=== PATIENT | male | born 1945 | race African-American/Black ===

== ENCOUNTER 2019-06-13 13:08 | Emergency (ER) | payer OTHER ==
[2019-06-13 13:29] LABS: Absolute Lymphocytes (CBC) 1.9 K/uL (0.7-4.9); Basophils % 0.5 % (0-1.3); Hematocrit 33.3 % (39.6-49.0); Lymphocytes % 21.7 % (15.3-44.8); MPV 6.5 fL (7.6-11.3)
[2019-06-13] MEDS ORDERED: NA CHLORIDE 0.9% 1,000 ML ONE (13:48)
--- NOTE | 2019-06-13 14:13 | RAD REPORT ---
EXAM DESCRIPTION: CT - Head C Spine Mpr Wo Con - 06/13/2019 1:52 pm CLINICAL HISTORY: Head and neck injury status post fall. Head and neck pain COMPARISON: None. TECHNIQUE: Computed axial tomography of the head and cervical spine was obtained. Sagittal and coronal reconstruction was performed. All CT scans are performed using dose optimization technique as appropriate and may include automated exposure control or mA/KV adjustment according to patient size. FINDINGS: Mild to moderate low-density areas within periventricular, deep and subcortical white sophia er likely ischemic changes secondary to small vessel disease. Cerebral atrophy is noted. An intracranial bleed is not seen. The ventricles are normal in caliber. An extra-axial fluid collect ion is not noted.Fluid within the visualized sinuses and mastoids is not seen A cervical fracture is not visualized. No dislocation is noted. IMPRESSION: No acute intracranial abnormality is seen. A cervical fracture is not visualized. If the patient continues to have symptoms to suggest intracra nial /spinal cord pathology then MRI would be recommended
--- NOTE | 2019-06-13 14:20 | RAD REPORT ---
EXAM DESCRIPTION: RAD - Pelvis - 06/13/2019 2:10 pm CLINICAL HISTORY: Pelvic pain status post injury FINDINGS: No fracture or dislocation is seen. Osteoporosis. Marked osteoarthritis right hip. If the patient continues to have symptoms to suggest an occult fracture then MRI would be recommended
--- NOTE | 2019-06-13 14:21 | RAD REPORT ---
EXAM DESCRIPTION: RAD - Hip Left 2 View - 06/13/2019 2:10 pm CLINICAL HISTORY: Left hip pain status post injury FINDINGS: No fracture or dislocation is seen. Osteoporosis If the patient continues to have symptoms to suggest an occult fracture then MRI would be recommended .
--- NOTE | 2019-06-13 14:23 | RAD REPORT ---
EXAM DESCRIPTION: Deny Single View06/13/2019 2:12 pm CLINICAL HISTORY: Chest pain COMPARISON: none FINDINGS: A 6 millimeter nodular density left base The right lung appears clear. Heart is normal size IMPRESSION: A 6 millimeter nodular opacity left base may represent a nipple shadow or pulmonary nodu le. It is recommended that the patient have frontal and oblique views of the chest in 3 months with a left nipple marker for further evaluation
[2019-06-13] MEDS ORDERED: IBUPROFEN 200 MG TAB PO ONE (14:32)
[2019-06-13] MEDS ORDERED: IBUPROFEN 400 MG TAB ONE (14:32)
[2019-06-13 14:34] LABS: Protime INR 1.11
[2019-06-13 14:49] LABS: ALT/SGPT 48 U/L (12-78); AST/SGOT 33 U/L (15-37); Albumin 3.8 g/dL (3.4-5.0); Alkaline Phosphatase 79 U/L (45-117); BUN Blood Urea Nitrogen 10 mg/dL (7-18); Bicarbonate 24 mmol/L (21-32); Bilirubin Direct 0.2 mg/dL (0-0.2); Bilirubin Total 0.5 mg/dL (0.2-1.0); CKMB Creatine Kinase MB < 1.0 ng/mL (0.3-3.6); Creatine Phosphokinase 44 U/L (39-308); Glucose Level 126 mg/dL (74-106); Lipase 89 U/L (73-393); Magnesium 2.2 mg/dL (1.8-2.4); NT PRO-BNP 228 pg/mL (<125); Potassium 3.5 mmol/L (3.5-5.1); Protein, Total 8.9 g/dL (6.4-8.2); Sodium Level 134 mmol/L (136-145); Troponin (Emerg Dept Use Only) < 0.02 ng/mL (0.0-0.045)
--- NOTE | 2019-06-13 15:29 | RAD REPORT ---
EXAM DESCRIPTION: USCarotid Artery Bilateral06/13/2019 3:21 pm CLINICAL HISTORY: Syncope with head and COMPARISON: None FINDINGS: The velocity of the right internal carotid artery equals 106 cm/sec. The right ICA/CCA rat io 1.3 The velocity of the left internal carotid artery equals 91 cm/sec. The left ICA/CCA ratio 1.2 Mild plaque is present within the carotid arteries. The vertebral arteries demonstrate antegrade flow IMPRESSION: Mild plaque within the carotid arteries without evidence of a hemodynamically significan t stenosis NASCET criteria used. Mild 0-49% stenosis Moderate 50-69% stenosis Severe 70-99% stenosis
--- NOTE | 2019-06-13 15:30 | ER ---
Nurse's Notes [facility] Name: Cabrera Tucker Age: 73 yrs Sex: Male : 1945 Arrival Date: 06/13/2019 Time: 13:10 Bed 8 Private MD: Diagnosis: Superficial injury of head;Syncope and collapse;Solitary pulmonary nodule Presentation: 06/13 13:10 Presenting complaint: EMS states: pt was at a convenient store, became dizzy and fell sg backward to the ground, striking the back of his head on the convenient store shelf, small laceration sustained to the back of head, pt denies LOC, reports just dizziness, denied numbness tingling, weakness, VAN negative per EMS. Transition of care: patient was not received from another setting of care. Onset of symptoms was June 13, 2019. Risk Assessment: Do you want to hurt yourself or someone else? Patient reports no desire to harm self or others. Initial Sepsis Screen: Does the patient meet any 2 criteria? HR > 90 bpm. Does the patient have a suspected source of infection? No. Patient's initial sepsis screen is negative. Care prior to arrival: None. 13:10 Method Of Arrival: EMS: [facility] sg 13:10 Acuity: ILIR 2 sg 13:12 Note VS per EMS- HR 128, BP 80'S systolic. sg Triage Assessment: 13:14 General: Appears in no apparent distress. slender, well groomed, well developed, well sg nourished, Behavior is calm, cooperative, appropriate for age. Pain: Complains of pain in occipital area. Neuro: Level of Consciousness is awake, alert, obeys commands, Oriented to person, place, time, situation, Heating Element Repairer are equal bilaterally Moves all extremities. Full function Gait is steady, Speech is normal, Facial symmetry appears normal. Respiratory: Airway is patent Respiratory effort is even, unlabored, Respiratory pattern is regular, symmetrical, Denies cough, shortness of breath labored breathing, pain with respiration, pain with cough, pain with movement, air hunger. GI: No signs and/or symptoms were reported involving the gastrointestinal system. : No signs and/or symptoms were reported regarding the genitourinary system. Derm: Skin is healthy with good turgor, is thin, Skin is dry, Skin is black, Skin temperature is warm. Musculoskeletal: Circulation, motion, and sensation intact. Range of motion: intact in all extremities. Injury Description: Laceration sustained to occipital area is clean, superficial, 0.5 to 2.5 cm long, not bleeding, a small amount of bleeding noted at this time. Historical: - Allergies: 13:14 No Known Allergies; sg - Home Meds: 13:14 None [Active]; sg - PMHx: 14:35 None; em - PSHx: 13:14 None; sg - Immunization history:: Adult Immunizations not up to date, Last tetanus immunization: unknown. - Coronavirus screen:: The patient has NOT traveled to [place] in the past 14 days. The patient has NOT had contact with known/suspected case of Coronavirus?. - Social history:: Smoking status: Patient denies any tobacco usage or history of. - Family history:: not pertinent. - Ebola Screening: : Patient negative for fever greater than or equal to 101.5 degrees Fahrenheit, and additional compatible Ebola Virus Disease symptoms Patient denies exposure to infectious person Patient denies travel to an Ebola-affected area in the 21 days before illness onset No symptoms or risks identified at this time. Screenin:15 Abuse screen: Denies threats or abuse. Nutritional screening: No deficits noted. em Tuberculosis screening: No symptoms or risk factors identified. Fall Risk None identified. Assessment: 13:10 General: Appears in no apparent distress. comfortable, Behavior is calm, cooperative, em appropriate for age, Denies feeling ill. Pain: Complains of pain in left hip and occipital area Pain currently is 4 out of 10 on a pain scale. Pain began 1 hour ago. Neuro: Level of Consciousness is awake, alert, obeys commands, Oriented to person, place, time, situation, Appropriate for age Reports became dizzy and passed out, did have LOC and did hit head, denies being on blood thinners . Cardiovascular: Capillary refill < 3 seconds Patient's skin is warm and dry. Rhythm is sinus rhythm. Respiratory: Airway is patent Respiratory effort is even, unlabored, Respiratory pattern is regular, symmetrical. GI: Patient currently denies nausea, vomiting. Derm: Skin is intact, is healthy with good turgor, Skin is pink, warm \T\ dry. Musculoskeletal: Capillary refill < 3 seconds, Range of motion: intact in all extremities. 14:25 Reassessment: Patient appears in no apparent distress at this time. request something em for pain, rates pain 4/10, provider notified, received new medication orders. 15:10 Reassessment: ultrasound at bedside now. mg2 15:50 Reassessment: Patient appears in no apparent distress at this time. Patient and/or em family updated on plan of care and expected duration. Pain level reassessed. Patient is alert, oriented x 3, equal unlabored respirations, skin warm/dry/pink. tolerated orthostatics well, provider notified, received verbal order to give NS 0.9% 500 mL x 1 Patient denies pain at this time. Patient states feeling better. 16:00 Reassessment: pending completion of NS, prior to discharge. em 16:47 Reassessment: Patient appears in no apparent distress at this time. Patient and/or em family updated on plan of care and expected duration. Pain level reassessed. Patient is alert, oriented x 3, equal unlabored respirations, skin warm/dry/pink. Patient denies pain at this time. Patient states feeling better. Vital Signs: 13:10 BP 103 / 76; Pulse 109; Resp 17; Temp 98.4; Pulse Ox 100% on R/A; Pain 2/10; sg 14:30 BP 128 / 71; Pulse 96; Resp 16; Pulse Ox 99% on R/A; Pain 4/10; em 15:42 BP 141 / 74 Supine; Pulse 89; em 15:42 BP 133 / 81 Sitting; Pulse 87; em 15:42 BP 127 / 78 Standing; Pulse 95; em 16:48 BP 125 / 68; Pulse 94; Resp 18; Pulse Ox 99% on R/A; Pain 0/10; em 15:42 pt did not become dizzy or lightheaded, tolerated well em ED Course: 13:10 Patient arrived in ED. sg 13:12 Triage completed. sg 13:13 Arm band placed on. sg 13:15 Anton Wallis, RN is Primary Nurse. em 13:15 Patient has correct armband on for positive identification. Placed in gown. Bed in low em position. Call light in reach. Side rails up X2. radiology tech on. Pulse ox on. NIBP on. 13:15 Maintain EMS IV. Dressing intact. Good blood return noted. Site clean \T\ dry. Gauge \T\ em site: 20 LAC. 13:16 Joe Lazcano MD is Attending Physician. john 13:16 No provider procedures requiring assistance completed. mg2 13:52 CT completed. Patient moved back from CT. bq 15:19 Ultrasound completed. Patient tolerated well. sg3 16:47 IV discontinued, intact, bleeding controlled, No redness/swelling at site. Pressure em dressing applied. Administered Medications: 14:20 Drug: NS 0.9% 500 ml Route: IV; Rate: bolus; Site: left antecubital; em 16:49 Follow up: IV Status: Completed infusion; IV Intake: 500ml em 14:38 Drug: Motrin 600 mg Route: PO; em 15:42 Follow up: Response: No adverse reaction; Marked relief of symptoms; Pain is decreased em 15:58 Drug: NS 0.9% 500 ml Route: IV; Rate: bolus; Site: left antecubital; em 16:46 Follow up: IV Status: Completed infusion; IV Intake: 500ml em Point of Care Testing: Blood Glucose: 13:10 Blood Glucose: 118 mg/dL; sg Ranges: Intake: 16:46 IV: 500ml; Total: 500ml. em 16:49 IV: 500ml; Total: 1000ml. em Outcome: 15:28 Discharge ordered by . john 16:47 Discharged to home ambulatory, with family. em 16:47 Condition: good 16:47 Discharge instructions given to patient, family, Instructed on discharge instructions, follow up and referral plans. Demonstrated understanding of instructions, follow-up care. 16:51 Patient left the ED. em Signatures: Jordi Magallon RN RN Joe Lazcano MD MD cha Quilty, Betty Anton Wallis RN RN Amanda Rivas [facility] Manuel Haney RN RN mg2
--- NOTE | 2019-06-13 15:31 | EDPHYS ---
Physician Documentation [facility] Name: Cabrera Tucker Age: 73 yrs Sex: Male : 1945 Arrival Date: 06/13/2019 Time: 13:10 Bed 8 Private MD: ED Physician Joe Lazcano HPI: 06/13 13:27 This 73 yrs old Black Male presents to ER via EMS with complaints of Near Syncope. john 13:27 The patient has experienced near-syncope, almost passed out, felt dizzy, felt generally john weak. Onset: The symptoms/episode began/occurred just prior to arrival. Duration: This was a single episode, that lasted an unknown period of time. Context: the episode(s) was witnessed, by a bystander. Associated injury: Head/face:. Associated signs and symptoms: The patient has no apparent associated signs or symptoms. The patient has not experienced similar symptoms in the past. Historical: - Allergies: 13:14 No Known Allergies; sg - Home Meds: 13:14 None [Active]; sg - PMHx: 14:35 None; em - PSHx: 13:14 None; sg - Immunization history:: Adult Immunizations not up to date, Last tetanus immunization: unknown. - Coronavirus screen:: The patient has NOT traveled to [place] in the past 14 days. The patient has NOT had contact with known/suspected case of Coronavirus?. - Social history:: Smoking status: Patient denies any tobacco usage or history of. - Family history:: not pertinent. - Ebola Screening: : Patient negative for fever greater than or equal to 101.5 degrees Fahrenheit, and additional compatible Ebola Virus Disease symptoms Patient denies exposure to infectious person Patient denies travel to an Ebola-affected area in the 21 days before illness onset No symptoms or risks identified at this time. ROS: 13:27 Constitutional: Negative for fever, chills, and weight loss, Eyes: Negative for injury, john pain, redness, and discharge, ENT: Negative for injury, pain, and discharge, Neck: Negative for injury, pain, and swelling, Cardiovascular: Negative for chest pain, palpitations, and edema, Respiratory: Negative for shortness of breath, cough, wheezing, and pleuritic chest pain, Abdomen/GI: Negative for abdominal pain, nausea, vomiting, diarrhea, and constipation, Back: Negative for injury and pain, : Negative for injury, bleeding, discharge, and swelling, MS/Extremity: Negative for injury and deformity, Skin: Negative for injury, rash, and discoloration, Psych: Negative for depression, anxiety, suicide ideation, homicidal ideation, and hallucinations, Allergy/Immunology: Negative for hives, rash, and allergies, Endocrine: Negative for neck swelling, polydipsia, polyuria, polyphagia, and marked weight changes, Hematologic/Lymphatic: Negative for swollen nodes, abnormal bleeding, and unusual bruising. 13:27 Neuro: Positive for syncope, near syncope. Exam: 13:27 Constitutional: This is a well developed, well nourished patient who is awake, alert, john and in no acute distress. Head/Face: Normocephalic, atraumatic. Eyes: Pupils equal round and reactive to light, extra-ocular motions intact. Lids and lashes normal. Conjunctiva and sclera are non-icteric and not injected. Cornea within normal limits. Periorbital areas with no swelling, redness, or edema. ENT: Nares patent. No nasal discharge, no septal abnormalities noted. Tympanic membranes are normal and external auditory canals are clear. Oropharynx with no redness, swelling, or masses, exudates, or evidence of obstruction, uvula midline. Mucous membranes moist. Neck: Trachea midline, no thyromegaly or masses palpated, and no cervical lymphadenopathy. Supple, full range of motion without nuchal rigidity, or vertebral point tenderness. No Meningismus. Chest/axilla: Normal chest wall appearance and motion. Nontender with no deformity. No lesions are appreciated. Cardiovascular: Regular rate and rhythm with a normal S1 and S2. No gallops, murmurs, or rubs. Normal PMI, no JVD. No pulse deficits. Respiratory: Lungs have equal breath sounds bilaterally, clear to auscultation and percussion. No rales, rhonchi or wheezes noted. No increased work of breathing, no retractions or nasal flaring. Abdomen/GI: Soft, non-tender, with normal bowel sounds. No distension or tympany. No guarding or rebound. No evidence of tenderness throughout. Back: No spinal tenderness. No costovertebral tenderness. Full range of motion. Male : Normal genitalia with no discharge or lesions. Skin: Warm, dry with normal turgor. Normal color with no rashes, no lesions, and no evidence of cellulitis. MS/ Extremity: Pulses equal, no cyanosis. Neurovascular intact. Full, normal range of motion. Neuro: Awake and alert, GCS 15, oriented to person, place, time, and situation. Cranial nerves II-XII grossly intact. Motor strength 5/5 in all extremities. Sensory grossly intact. Cerebellar exam normal. Normal gait. Psych: Awake, alert, with orientation to person, place and time. Behavior, mood, and affect are within normal limits. 13:27 Neck: C-spine: appears grossly normal, no acute changes, Thyroid: appears normal, Trachea: is midline with no obvious abnormalities, ROM/movement: is normal, no acute changes, Lymph nodes: no appreciated lymphadenopathy. Vital Signs: 13:10 BP 103 / 76; Pulse 109; Resp 17; Temp 98.4; Pulse Ox 100% on R/A; Pain 2/10; sg 14:30 BP 128 / 71; Pulse 96; Resp 16; Pulse Ox 99% on R/A; Pain 4/10; em 15:42 BP 141 / 74 Supine; Pulse 89; em 15:42 BP 133 / 81 Sitting; Pulse 87; em 15:42 BP 127 / 78 Standing; Pulse 95; em 16:48 BP 125 / 68; Pulse 94; Resp 18; Pulse Ox 99% on R/A; Pain 0/10; em 15:42 pt did not become dizzy or lightheaded, tolerated well em MDM: 13:16 Patient medically screened. [facility] 13:29 Data reviewed: vital signs, nurses notes, lab test result(s), EKG, radiologic studies, [facility] CT scan, doppler, plain films. 06/13 13:18 Order name: Basic Metabolic Panel em 06/13 13:18 Order name: CBC with Diff 06/13 13:18 Order name: Ckmb em 06/13 13:18 Order name: CPK em 06/13 13:18 Order name: Hepatic Function em 06/13 13:18 Order name: Lipase em 06/13 13:18 Order name: Magnesium em 06/13 13:18 Order name: Protime (+inr) em 06/13 13:18 Order name: Ptt, Activated em 06/13 13:18 Order name: Troponin (emerg Dept Use Only) em 06/13 13:25 Order name: Glucose, Ancillary Testing; Complete Time: 14:28 EDND 06/13 13:27 Order name: NT PRO-BNP [facility] 06/13 13:32 Order name: CBC with Automated Diff; Complete Time: 14:28 EDND 06/13 14:38 Order name: Protime (+INR); Complete Time: 15:06 EDND 06/13 13:18 Order name: CT Head C Spine 06/13 13:27 Order name: XRAY Chest (1 view) [facility] 06/13 13:27 Order name: US Carotid Artery Bilateral [facility] 06/13 13:35 Order name: Hip Left 2 View XRAY [facility] 06/13 13:35 Order name: Pelvis XRAY [facility] 06/13 14:38 Order name: PTT, Activated Partial Thromb; Complete Time: 15:06 EDND 06/13 14:51 Order name: Basic Metabolic Panel; Complete Time: 15:06 [facility] 06/13 14:51 Order name: Liver (Hepatic) Function; Complete Time: 15:06 EDND 06/13 14:51 Order name: Creatine Phosphokinase; Complete Time: 15:06 [facility] 06/13 14:51 Order name: CKMB Creatine Kinase MB; Complete Time: 15:06 EDND 06/13 14:51 Order name: Troponin (Emerg Dept Use Only); Complete Time: 15:06 EDND 06/13 14:51 Order name: NT PRO-BNP; Complete Time: 15:06 [facility] 06/13 14:51 Order name: Magnesium; Complete Time: 15:06 [facility] 06/13 14:51 Order name: Lipase; Complete Time: 15:06 [facility] 06/13 16:20 Order name: Urine Dipstick--Ancillary (enter results) 06/13 16:39 Order name: Urine Dipstick-Ancillary [facility] 06/13 13:18 Order name: EKG; Complete Time: 13:19 06/13 13:18 Order name: Cardiac monitoring; Complete Time: 13:32 06/13 13:18 Order name: EKG - Nurse/Tech; Complete Time: 13:25 06/13 13:18 Order name: IV Saline Lock; Complete Time: 13:25 06/13 13:18 Order name: Labs collected and sent; Complete Time: 13:25 em 06/13 13:18 Order name: NPO; Complete Time: 13:25 em 06/13 13:18 Order name: O2 Per Protocol; Complete Time: 13:25 em 06/13 13:18 Order name: O2 Sat Monitoring; Complete Time: 13:26 em 06/13 13:18 Order name: Urine Dipstick-Ancillary (obtain specimen); Complete Time: 16:10 em 06/13 13:33 Order name: Labs - recollect needed: recollect green and blue top tubes; Complete Time: eb 14:23 06/13 14:34 Order name: CT; Complete Time: 15:06 EDMS 06/13 14:35 Order name: RAD; Complete Time: 15:06 EDMS 06/13 14:35 Order name: RAD; Complete Time: 15:06 EDMS 06/13 14:35 Order name: RAD; Complete Time: 15:06 EDMS 06/13 15:30 Order name: Orthostatics; Complete Time: 15:55 [facility] 06/13 15:37 Order name: EDMS Administered Medications: 14:20 Drug: NS 0.9% 500 ml Route: IV; Rate: bolus; Site: left antecubital; em 16:49 Follow up: IV Status: Completed infusion; IV Intake: 500ml em 14:38 Drug: Motrin 600 mg Route: PO; em 15:42 Follow up: Response: No adverse reaction; Marked relief of symptoms; Pain is decreased em 15:58 Drug: NS 0.9% 500 ml Route: IV; Rate: bolus; Site: left antecubital; em 16:46 Follow up: IV Status: Completed infusion; IV Intake: 500ml em Point of Care Testing: Blood Glucose: 13:10 Blood Glucose: 118 mg/dL; sg Ranges: Critical Glucose Levels:Adult <50 mg/dl or >400 mg/dl <40 mg/dl or >180 mg/dl Disposition: 06/13/19 15:28 Discharged to Home. Impression: Superficial injury of head, Syncope and collapse, Solitary pulmonary nodule. - Condition is Stable. - Discharge Instructions: Head Injury, Adult, Near-Syncope, Weakness, Near-Syncope, [id number], Weakness, [id number], Head Injury, Adult, [id number], Aspirin and Your Heart, Pulmonary Nodule, Pulmonary Nodule, [id number]. - Medication Reconciliation Form, Thank You Letter, Antibiotic Education, Prescription Opioid Use form. - Follow up: Private Physician; When: 2 - 3 days; Reason: Recheck today's complaints, Continuance of care, Re-evaluation by your physician. - Problem is new. - Symptoms have improved. Signatures: Dispatcher [employer] Jordi Samuel, RN Joe Gorman MD MD cha Munoz, Edgar, RN RN Amisha Funez Corrections: (The following items were deleted from the chart) 16:51 15:28 06/13/2019 15:28 Discharged to Home. Impression: Superficial injury of head; em Syncope and collapse; Solitary pulmonary nodule. Condition is Stable. Forms are Medication Reconciliation Form, Thank You Letter, Antibiotic Education, Prescription Opioid Use. Follow up: Private Physician; When: 2 - 3 days; Reason: Recheck today's complaints, Continuance of care, Re-evaluation by your physician. Problem is new. Symptoms have improved. john
[2019-06-13 16:39] LABS: Urine Blood NEGATIVE (NEG); Urine Glucose NEGATIVE (NEG); Urine Protein NEGATIVE (NEG); Urine pH 5.5 (5.0-7.0)
[2019-06-13 17:33] VITALS: TEMP 98.4
[2019-06-13 17:34] VITALS: O2SAT 99
[2019-06-13 17:37] VITALS: BP 125/68
--- NOTE | 2019-06-14 08:11 | EKG ---
Test Date: 2019-06-13 Test Time: 13:14:24 Travel Professional: KOBE MEASUREMENT RESULTS: Intervals: Rate: 102 OH: 210 QRSD: 94 QT: 346 QTc: 450 Hugo: P: 68 OH: 210 QRS: -18 T: 73 INTERPRETIVE STATEMENTS: Sinus tachycardia with 1st degree AV block Otherwise normal ECG No previous ECG available for comparison Electronically Signed On 06-14-19 08:09:34 FIRE ALARM DISPATCHER by Telly Linda
== END 2019-06-13 16:51 | disposition home or self-care (01) ==
LOC: ER 13:08
DX: S00.90XA Unspecified superficial injury of unspecified part of head, initial encounter (principal); R91.1 Solitary pulmonary nodule
CPT/HCPCS: 96361; 93005; 85025; 80048; 36415; 83735; 82550; 85610; 82947; 80076; 85730; 81003; 84484; 82553; 83690; 83880; 70450; 72125; 71045; 72170; 73502; 93880; 96360; 99285; J7030

== ENCOUNTER 2021-11-07 15:25 | Inpatient (IN) | payer OTHER ==
[2021-11-07] MEDS ORDERED: FOLIC ACID 1 MG, MULTIVITAMINS INJ 10 ML, THIAMINE HCL 100 MG in NA CHLORIDE 0.9% 1,000 ML IV ONE (16:00)
[2021-11-07 16:31] LABS: Absolute Lymphocytes (CBC) 0.8 K/uL (0.7-4.9); Hematocrit 32.1 % (39.6-49.0); Lymphocytes % 15.1 % (15.3-44.8); MCV 113.1 fL (80-100); MPV 6.3 fL (7.6-11.3); RBC Red Blood Cell Count 2.84 M/uL (4.33-5.43)
[2021-11-07 16:42] LABS: Protime INR 1.32
--- NOTE | 2021-11-07 16:48 | RAD REPORT ---
EXAM DESCRIPTION: CT - [id number] - 11/07/2021 4:33 pm CLINICAL HISTORY: fall, weakness COMPARISON: <Comparisons> TECHNIQUE: Axial 5 mm thick images of the head were obtained. Axial 2 mm thick images of the cervic al spine were obtained with sagittal and coronal reconstruction images generated and reviewed. All CT scans are performed using dose optimization technique as appropriate and may include automated exposure control or mA/KV adjustment according to patient size. FINDINGS: No intracranial hemorrhage, mass, edema or acute intracranial finding. No acute cortical i nfarction. No cortical edema or sulcal effacement. Moderate severity atrophy and moderate chronic isc hemic changes are present. Ventricles are in proportion. No extra-axial fluid collections. Mastoid ai r cells and paranasal sinuses are clear. No globe or orbit abnormality seen. Intracranial findings ar e similar to the 2019 study. Cervical body height and alignment are normal. No disk space narrowing. No fracture or acute bony abn ormality. No acute or pathologic bone process. Central canal detail is inherently limited. No paraspinal mass or hematoma. IMPRESSION: Negative CT head examination for acute or significant finding. Negative CT cervical spine examination for acute or significant finding. Above detailed findings not significant different from May 2019.
[2021-11-07 16:49] LABS: Albumin 3.4 g/dL (3.4-5.0); Bilirubin Direct 0.2 mg/dL (0-0.2); Bilirubin Total 0.9 mg/dL (0.2-1.0)
[2021-11-07 16:52] LABS: Magnesium 2.2 mg/dL (1.8-2.4); Potassium 3.7 mmol/L (3.5-5.1)
[2021-11-07 16:54] LABS: Troponin High Sensitivity 153.4 pg/mL (<58.9)
--- NOTE | 2021-11-07 16:59 | RAD REPORT ---
EXAM DESCRIPTION: RAD - Chest Single View - 11/07/2021 4:28 pm CLINICAL HISTORY: fall, chest pain COMPARISON: PA chest 06/13/2019 TECHNIQUE: AP portable chest image was obtained 11/07/2021 4:28 pm . FINDINGS: Lungs are clear. Heart and vasculature are normal. No measurable pleural effusion and no p neumothorax. No acute bony abnormality seen. No acute aortic findings suspected. IMPRESSION: No acute cardiopulmonary process.
[2021-11-07 18:34] LABS: Urine Blood Trace-intact (Negative); Urine Glucose Negative (Negative); Urine Protein 1+ (Negative); Urine Specific Gravity >=1.030 (1.005-1.030); Urine pH 5.5 (5.0-7.0)
[2021-11-07 18:50] LABS: Urine Bacteria NONE SEEN /HPF (NONE SEEN)
[2021-11-07 18:54] LABS: Barbiturates NEGATIVE (NEGATIVE); Benzodiazepines NEGATIVE (NEGATIVE); Cocaine NEGATIVE (NEGATIVE); METHAMPHETAM NEGATIVE (NEGATIVE); Methadone NEGATIVE (NEGATIVE); Opiates NEGATIVE (NEGATIVE); Phencyclidine NEGATIVE (NEGATIVE); THC Cannibis NEGATIVE (NEGATIVE)
[2021-11-07] MEDS ORDERED: NA CHLORIDE 0.9% 50 ML ONE (18:58)
[2021-11-07] MEDS ORDERED: CEFTRIAXONE 1000 MG/VIAL ONE (18:58)
--- NOTE | 2021-11-07 19:05 | EDPHYS ---
Physician Documentation [facility] Name: Cabrera Tucker Age: 76 yrs Sex: Male : 1945 Arrival Date: 11/07/2021 Time: 15:31 Bed 13 Private MD: ED Physician Joe Lazcano HPI: 11/07 16:13 This 76 yrs old Black Male presents to ER via EMS with complaints of Fall, Weakness. cp 16:13 Details of fall: The patient fell from an upright position, while walking, tripped over cp "beer can" on floor in home. Onset: The symptoms/episode began/occurred early this morning, reports was unable to get up from floor until son found him this morning and placed him in bed. Patient reports being unable to get out of bed today due to weakness. 16:13 Associated injuries: The patient sustained no obvious injury. cp Historical: - Allergies: 15:38 No Known Allergies; tw2 - Home Meds: 15:38 None [Active]; tw2 - PMHx: 15:38 None; tw2 - PSHx: 15:38 None; tw2 - Immunization history:: Client reports receiving the 2nd dose of the Covid vaccine. - Social history:: Smoking status: Patient denies any tobacco usage or history of. Patient uses alcohol, on a daily basis. claims drinking about a 6 pack/day. ROS: 16:15 Constitutional: Negative for body aches, chills, fever, poor PO intake. cp 16:15 Eyes: Negative for injury, pain, redness, and discharge. cp 16:15 ENT: Negative for drainage from ear(s), ear pain, sore throat, difficulty swallowing, difficulty handling secretions. 16:15 Cardiovascular: Negative for chest pain, edema, palpitations. 16:15 Respiratory: Negative for cough, shortness of breath, wheezing. 16:15 Abdomen/GI: Negative for abdominal pain, nausea, vomiting, and diarrhea, anorexia, black/tarry stool, rectal bleeding. 16:15 Back: Negative for pain at rest, pain with movement. 16:15 MS/extremity: Negative for injury or acute deformity, decreased range of motion, paresthesias. 16:15 Neuro: Positive for weakness, Negative for altered mental status, dizziness, headache, numbness, seizure activity, syncope. 16:15 All other systems are negative. Exam: 15:55 ECG was reviewed by the Attending Physician. cp 16:20 Constitutional: The patient appears in no acute distress, alert, awake, cp non-diaphoretic, non-toxic, well developed, frail. 16:20 Head/Face: Normocephalic, atraumatic. cp 16:20 Eyes: Periorbital structures: appear normal, Pupils: equal, round, and reactive to light and accomodation, Extraocular movements: intact throughout, Conjunctiva: normal, no exudate, no injection, Sclera: no appreciated abnormality, Lids and lashes: appear normal, bilaterally. 16:20 ENT: External ear(s): are unremarkable, Nose: is normal, Mouth: Lips: moist, Oral mucosa: pink and intact, moist, Posterior pharynx: Airway: no evidence of obstruction, patent, erythema, is not appreciated, exudate, is not appreciated. 16:20 Neck: ROM/movement: is normal, is supple, without pain, no range of motions limitations, no nuchal rigidity. 16:20 Chest/axilla: Inspection: normal, Palpation: is normal, no crepitus, no tenderness. 16:20 Cardiovascular: Rate: normal, Rhythm: regular, Edema: is not appreciated, JVD: is not appreciated. 16:20 Respiratory: the patient does not display signs of respiratory distress, Respirations: normal, no use of accessory muscles, no retractions, labored breathing, is not present, Breath sounds: are clear throughout, no decreased breath sounds, no stridor, no wheezing. 16:20 Abdomen/GI: Inspection: abdomen appears normal, Bowel sounds: active, all quadrants, Palpation: abdomen is soft and non-tender, in all quadrants. 16:20 Back: pain, is absent, ROM is normal, vertebral tenderness, is not appreciated. 16:20 Skin: cellulitis, is not appreciated, no rash present. 16:20 Neuro: Orientation: to person, place \\T\\ time. Mentation: is normal, Motor: moves all fours, general weakness with no focal deficits, Sensation: is normal. 17:34 : Rectal exam: Rectal tone: normal, Stool: soft, dark colored, Guaiac testing: cp results were negative for occult blood. Vital Signs: 15:30 BP 106 / 73; Pulse 89; Resp 17; Temp 98.1(TE); Pulse Ox 99% on R/A; Weight 43.09 kg tw2 (R); Height 5 ft. 8 in. (172.72 cm); 16:49 BP 110 / 69; Pulse 85; Resp 9; Pulse Ox 100% on R/A; tw2 17:30 BP 119 / 71; Pulse 79; Resp 16; Pulse Ox 99% on R/A; tw2 18:25 BP 122 / 68; Pulse 78; Resp 21; Pulse Ox 100% on R/A; tw2 19:35 BP 125 / 68; Pulse 88; Resp 22; Pulse Ox 100% on R/A; sm5 21:54 BP 120 / 79; Pulse 85; Resp 21; Pulse Ox 98% on R/A; sm5 15:30 Body Mass Index 14.44 (43.09 kg, 172.72 cm) tw2 MDM: 15:32 Patient medically screened. [facility] 19:05 Data reviewed: vital signs, nurses notes, lab test result(s), EKG, radiologic studies, cp CT scan, plain films, and as a result, I will admit patient. 19:05 Test interpretation: by ED physician or midlevel provider: ECG, plain radiologic cp studies. Counseling: I had a detailed discussion with the patient and/or guardian regarding: the historical points, exam findings, and any diagnostic results supporting the discharge/admit diagnosis, lab results, radiology results, the need for further work-up and treatment in the hospital. 11/07 15:35 Order name: Basic Metabolic Panel; Complete Time: 17:16 11/07 17:16 Interpretation: Normal except: GLUC 111; GFR 86. 11/07 15:35 Order name: CBC with Diff; Complete Time: 17:16 cp 11/07 17:16 Interpretation: Normal except: RBC 2.84; HGB 11.1; HCT 32.1; MCV 113.1; MCH 39.2; RDW cp 11.7; MPV 6.3; JESSICA% 76.3; LYM% 15.1. 11/07 15:35 Order name: LFT's; Complete Time: 17:16 cp 11/07 15:35 Order name: Magnesium; Complete Time: 17:16 cp 11/07 15:35 Order name: NT PRO-BNP; Complete Time: 17:16 cp 11/07 17:16 Interpretation: NT PRO-BNP 7795; Reviewed. cp 11/07 15:35 Order name: PT-INR; Complete Time: 17:16 cp 11/07 15:35 Order name: Troponin HS; Complete Time: 17:16 cp 11/07 17:17 Interpretation: Abnormal: Troponin HS 153.4. cp 11/07 15:35 Order name: CK; Complete Time: 17:16 cp 11/07 17:17 Interpretation: Abnormal: CPK 444. cp 11/07 15:35 Order name: Urine Microscopic Only; Complete Time: 19:03 cp 11/07 15:35 Order name: ETOH Level; Complete Time: 17:16 cp 11/07 15:35 Order name: UDS; Complete Time: 19:03 cp 11/07 18:34 Order name: Urine Dipstick-Ancillary; Complete Time: 18:39 EDMS 11/07 18:39 Interpretation: Normal except: UKET 2+; UBLD Trace-intact; UPROT 1+; U NIT Positive. cp 11/07 18:41 Order name: Procalcitonin; Complete Time: 20:05 cp 11/07 18:41 Order name: Lactate; Complete Time: 21:06 cp 11/07 15:35 Order name: XRAY Chest (1 view); Complete Time: 17:16 cp 11/07 15:35 Order name: EKG; Complete Time: 15:36 cp 11/07 15:35 Order name: Cardiac monitoring; Complete Time: 15:41 cp 11/07 15:35 Order name: EKG - Nurse/Tech; Complete Time: 16:34 cp 11/07 15:35 Order name: IV Saline Lock; Complete Time: 16:20 cp 11/07 15:35 Order name: Labs collected and sent; Complete Time: 16:20 cp 11/07 15:35 Order name: O2 Per Protocol; Complete Time: 15:41 cp 11/07 15:35 Order name: O2 Sat Monitoring; Complete Time: 15:41 cp 11/07 15:35 Order name: Urine Dipstick-Ancillary (obtain specimen); Complete Time: 18:36 cp 11/07 15:38 Order name: CT Head C Spine; Complete Time: 17:16 cp 11/07 17:19 Order name: Cath; Complete Time: 18:02 cp 11/07 18:41 Order name: Blood Culture Adult (2) cp 11/07 19:21 Order name: COVID-19 SARS RT PCR (Document "Date of Onset" if Symptomatic); Complete mw2 Time: 20:36 EC:55 Rate is 80 beats/min. Rhythm is regular. VT interval is normal. QRS interval is normal. cp QT interval is normal. T waves are Inverted in lead aVR. Interpreted by me. Reviewed by me. Administered Medications: 16:34 Drug: Banana Bag - (NS 0.9% 1000 ml, foLIC Acid 1 mg, Thiamine 100 mg, Multivitamin 1 tw2 amp) {Note: medication available from pharmacy at this time..} Route: IV; Rate: calculated rate; Site: left forearm; 19:34 Drug: Rocephin - (cefTRIAXone) 1 grams Route: IVPB; Infused Over: 30 mins; Site: left sm5 forearm; 19:45 Follow up: IV Status: Completed infusion; IV Intake: 50ml sm5 Disposition Summary: 11/07/21 19:04 Hospitalization Ordered Hospitalization Status: Inpatient Admission cp Provider: Adriane Jones cp [facility] cp Condition: Fair cp Problem: new cp Symptoms: are unchanged cp Bed/Room Type: Standard cp Room Assignment: 231(11/07/21 20:46) eb1 Diagnosis - UTI/ Urinary tract infection, site not specified cp - Weakness cp Forms: - Medication Reconciliation Form cp - SBAR form cp Addendum: 11/11/2021 14:07 Co-signature as Attending Physician, Joe Lazcano MD I agree with the assessment and c cagle plan of care. Signatures: Dispatcher [employer] EDJoe Laguerre MD MD cha Page, Corey, PA PA cp Raiza Schroeder, RN RN tw2 Anna Phelps RN RN eb1 Amanda Parker RN RN sm5 Adriane Jones PA PA sb3 Corrections: (The following items were deleted from the chart) 11/07 20:46 19:04 cp eb1
--- NOTE | 2021-11-07 19:05 | ER ---
Nurse's Notes [facility] Name: Cabrera Tucker Age: 76 yrs Sex: Male : 1945 Arrival Date: 11/07/2021 Time: 15:31 Bed 13 Private MD: Diagnosis: UTI/ Urinary tract infection, site not specified;Weakness Presentation: 11/07 15:30 Chief complaint: EMS states: pt from home, says he stumbled over some beer cans and tw2 couldn't get up. says it was yesterday and he had his son come help get him up because he was too weak to get up. drinks beers consistently throughout the day, appears malnourished. initial bp was 100/65 hr 113, started iv, gave about 100 mg LR. bgl 146 mg/dL. Coronavirus screen: At this time, the client does not indicate any symptoms associated with coronavirus-19. Ebola Screen: Patient denies travel to an Ebola-affected area in the 21 days before illness onset. Initial Sepsis Screen: Does the patient meet any 2 criteria? No. Patient's initial sepsis screen is negative. Does the patient have a suspected source of infection? No. Patient's initial sepsis screen is negative. Risk Assessment: Do you want to hurt yourself or someone else? Patient reports no desire to harm self or others. Note provider at bedside at this time. Onset of symptoms was November 07, 2021. Care prior to arrival: Medication(s) given: LR IV initiated. 20 GA, in the left wrist. 15:30 Method Of Arrival: EMS: [facility] tw2 15:30 Acuity: ILIR 3 tw2 Triage Assessment: 15:38 General: Appears in no apparent distress. unkempt, emaciated, malnourished, Behavior is tw2 calm, cooperative, appropriate for age. Pain: Denies pain. EENT: white drainage noted from b/l eyes. Neuro: Level of Consciousness is awake, alert, obeys commands, Oriented to person, place, time, situation. Cardiovascular: Patient's skin is warm and dry. Respiratory: Airway is patent Respiratory effort is even, unlabored, Respiratory pattern is regular, symmetrical. GI: No signs and/or symptoms were reported involving the gastrointestinal system. Abdomen is flat. : No signs and/or symptoms were reported regarding the genitourinary system. Derm: Skin is fragile, is thin, with poor turgor Skin is dry, Skin temperature is warm. Musculoskeletal: Circulation, motion, and sensation intact. Reports weakness in "all over". Historical: - Allergies: 15:38 No Known Allergies; tw2 - Home Meds: 15:38 None [Active]; tw2 - PMHx: 15:38 None; tw2 - PSHx: 15:38 None; tw2 - Immunization history:: Client reports receiving the 2nd dose of the Covid vaccine. - Social history:: Smoking status: Patient denies any tobacco usage or history of. Patient uses alcohol, on a daily basis. claims drinking about a 6 pack/day. Screenin:33 Abuse screen: Denies threats or abuse. Nutritional screening: Had unintentional weight tw2 loss of 10 pounds or more. Tuberculosis screening: No symptoms or risk factors identified. Fall Risk Secondary diagnosis (15 points) impaired mobility. Assessment: 15:38 Reassessment: see triage assessment. tw2 16:32 Reassessment: pt in CT at this time. tw2 16:49 Reassessment: Patient appears in no apparent distress at this time. No changes from tw2 previously documented assessment. Patient and/or family updated on plan of care and expected duration. Pain level reassessed. Patient is alert, oriented x 3, equal unlabored respirations, skin warm/dry/pink. 18:26 Reassessment: Patient appears in no apparent distress at this time. No changes from tw2 previously documented assessment. Patient and/or family updated on plan of care and expected duration. Pain level reassessed. Patient is alert, oriented x 3, equal unlabored respirations, skin warm/dry/pink. 19:35 General: Appears in no apparent distress. emaciated, Behavior is cooperative. Neuro: sm5 Level of Consciousness is awake, alert, obeys commands, Oriented to person, place, time, situation. Cardiovascular: Capillary refill < 3 seconds Patient's skin is warm and dry. Respiratory: Airway is patent Trachea midline Respiratory effort is even, unlabored. 21:54 Reassessment: No changes from previously documented assessment. sm5 Vital Signs: 15:30 BP 106 / 73; Pulse 89; Resp 17; Temp 98.1(TE); Pulse Ox 99% on R/A; Weight 43.09 kg tw2 (R); Height 5 ft. 8 in. (172.72 cm); 16:49 BP 110 / 69; Pulse 85; Resp 9; Pulse Ox 100% on R/A; tw2 17:30 BP 119 / 71; Pulse 79; Resp 16; Pulse Ox 99% on R/A; tw2 18:25 BP 122 / 68; Pulse 78; Resp 21; Pulse Ox 100% on R/A; tw2 19:35 BP 125 / 68; Pulse 88; Resp 22; Pulse Ox 100% on R/A; sm5 21:54 BP 120 / 79; Pulse 85; Resp 21; Pulse Ox 98% on R/A; sm5 15:30 Body Mass Index 14.44 (43.09 kg, 172.72 cm) tw2 ED Course: 15:31 Patient arrived in ED. em1 15:31 Joe Edge PA is PHCP. cp 15:31 Joe Lazcano MD is Attending Physician. cp 15:34 Raiza Schroeder RN is Primary Nurse. tw2 15:38 Triage completed. tw2 15:38 Bed in low position. Call light in reach. Side rails up X2. eyeletter on. Pulse tw2 ox on. NIBP on. Warm blanket given. 15:40 Arm band placed on. tw2 16:20 Inserted saline lock: 22 gauge in right forearm, using aseptic technique. Blood tw2 collected. Maintain EMS IV. Dressing intact. Site clean \\T\\ dry. Gauge \\T\\ site: 22 g LEFT fa. 16:30 XRAY Chest (1 view) In Process Unspecified. EDMS 16:35 CT Head C Spine In Process Unspecified. EDMS 18:02 Straight cath inserted, using sterile technique, 18 Fr. Specimen obtained. ERIN Zapata tw2 served as stabber at this time. 19:00 Report given to ERIN Patel - outstanding is bloodwork for both blood cultures and lactate tw2 and rocephin IV. lab notified to add on procal. 19:04 Adriane Jones PA is Hospitalizing Provider. cp 19:30 Blood Culture Adult (2) Sent. sm5 19:30 Lactate Sent. sm5 21:53 No provider procedures requiring assistance completed. Patient admitted, IV remains in [address] Administered Medications: 16:34 Drug: Banana Bag - (NS 0.9% 1000 ml, foLIC Acid 1 mg, Thiamine 100 mg, Multivitamin 1 tw2 amp) {Note: medication available from pharmacy at this time..} Route: IV; Rate: calculated rate; Site: left forearm; 19:34 Drug: Rocephin - (cefTRIAXone) 1 grams Route: IVPB; Infused Over: 30 mins; Site: left sm5 forearm; 19:45 Follow up: IV Status: Completed infusion; IV Intake: 50ml [facility] Medication: 16:34 VIS not applicable for this client. tw2 Intake: 19:45 IV: 50ml; Total: 50ml. 5 Outcome: 19:04 Decision to Hospitalize by Provider. cp 22:15 Admitted to Med/surg accompanied by tech, via stretcher, with chart. [facility] 22:15 Condition: stable 22:15 Instructed on the need for admit. 22:16 Patient left the ED. 5 Signatures: Dispatcher [employer] EDMS Reji Paulson em1 Joe Edge PA PA cp Raiza Schroeder RN RN tw2 Amanda Parker, ERIN RN 5 Corrections: (The following items were deleted from the chart) 16:33 15:38 Reassessment: pt in imaging at this time tw2 tw2
--- NOTE | 2021-11-07 20:41 | P.HP ---
Certification for Inpatient Patient admitted to: Observation With expected LOS: <2 Midnights Patient will require the following post-hospital care: None Practitioner: I am a practitioner with admitting privileges, knowledge of patient current condition, hospital course, and medical plan of care. Services: Services provided to patient in accordance with Admission requirements found in Title 42 Section 412.3 of the Code of Federal Regulations Patient History Date of Service: 11/07/21 Reason for admission: UTI, Weakness, Elevated Troponin History of Present Illness: Patient is a 76-year-old male who presented to the ED via EMS with complaints of weakness. Per EMS, patient was at home, fell, and was too weak to get up. Patient reports drinking a six pack of beers throughout day. Patient appears malnourished upon presentation. He denies any active medical problems or taking any medications on a daily basis. Vital signs stable. Labs significant for BNP 7795, troponin HS 153.4, CPK 444, urine nitrite positive. Serum alcohol WNL, tox screen negative. He was given a banana bag and started on Rocephin in the ED. He denies any chest pain during my assessment. ED provider wishes to admit patient for further evaluation and treatment. Home medications list reviewed: Yes (NA) - Past Medical/Surgical History Diabetic: No Past Medical History: Patient denies medical history Past Surgical History: Patient denies surgical history Psychosocial/ Personal History: Patient is . - Family History Father -: Cancer Notes: Pancreatic - Social History Smoking Status: Never smoker Alcohol use: Yes CD- Drugs: No Caffeine use: Yes Place of Residence: Home Review of Systems 10-point ROS is otherwise unremarkable General: Weakness Physical Examination - Physical Exam General: Alert, In no apparent distress HEENT: Atraumatic, PERRLA, EOMI, Sclerae nonicteric Neck: Supple, 2+ carotid pulse no bruit, No LAD, Without JVD or thyroid abnormality Respiratory: Clear to auscultation bilaterally, Normal air movement Cardiovascular: Regular rate/rhythm, Normal S1 S2 Gastrointestinal: Normal bowel sounds, No tenderness Musculoskeletal: No tenderness Integumentary: No rashes Neurological: Normal speech, Normal strength at 5/5 x4 extr, Normal tone, Normal affect - Studies Laboratory Data (last 24 hrs) 11/07/21 16:14: PT 14.6 H, INR 1.32 11/07/21 16:14: WBC 5.6, Hgb 11.1 L, Hct 32.1 L, Plt Count 210 11/07/21 16:14: Sodium 136, Potassium 3.7, BUN 11, Creatinine 0.93, Glucose 111 H, Magnesium 2.2, Total Bilirubin 0.9, AST 35, ALT 52, Alkaline Phosphatase 46 Assessment and Plan - Problems (Diagnosis) (1) Elevated troponin Current Visit: Yes Status: Acute (2) UTI (urinary tract infection) Current Visit: Yes Status: Acute Qualifiers: Urinary tract infection type: acute cystitis Hematuria presence: with hematuria Qualified Code(s): N30.01 - Acute cystitis with hematuria (3) Generalized weakness Current Visit: Yes Status: Acute (4) Rhabdomyolysis Current Visit: Yes Status: Acute Qualifiers: Rhabdomyolysis type: non-traumatic Qualified Code(s): M62.82 - Rhabdomyolysis (5) Dehydration Current Visit: Yes Status: Acute (6) Alcohol abuse Current Visit: Yes Status: Chronic (7) Elevated brain natriuretic peptide (BNP) level Current Visit: Yes Status: Acute - Plan -Initial troponin elevated at 153. Patient denies chest pain. Recheck in 6 hours -CPK elevation likely secondary to prolonged down time. Continue IVF. Recheck in morning. -Echo ordered. Cardiology consulted -Continue rocephin for UTI. Follow urine culture -Monitor patient on telemetry -Lipid, TSH, B12, and folate pending -Aspirin, atorvastatin, thiamine, and folic acid daily -Monitor and replete electrolytes per protocol -Lovenox for VTE ppx -Full code Discharge Plan: Home Plan to discharge in: 24 Hours - Advance Directives Does patient have a Living Will: No Does patient have a Durable POA for Healthcare: No - Code Status/Comfort Care Code Status Assessed: Yes (Full) Critical Care: No Time Spent Managing Pts Care (In Minutes): 50
[2021-11-07 22:39] VITALS: BMI 15.0
[2021-11-07] MEDS ORDERED: ACETAMINOPHEN 500 MG TAB PO PRN (23:23)
[2021-11-07] MEDS ORDERED: ONDANSETRON 4 MG/2 ML VIAL IV PRN (23:23)
[2021-11-08] MEDS: ATORVASTATIN 40 MG TAB PO SCH ×2 (00:55→20:05)
[2021-11-08 01:41] LABS: Absolute Lymphocytes (CBC) 1.5 K/uL (0.7-4.9); Hematocrit 27.6 % (39.6-49.0); Lymphocytes % 24.1 % (15.3-44.8); MCV 113.7 fL (80-100); RBC Red Blood Cell Count 2.43 M/uL (4.33-5.43)
[2021-11-08] MEDS: HEPARIN 5000 UNIT/ML 1 ML VIAL IV SCH (01:54)
[2021-11-08] MEDS: NA CHLORIDE 0.9% 1,000 ML IV SCH ×3 (01:59→16:52)
[2021-11-08] MEDS ORDERED: HEPARIN/D5W 25,000 UNIT/500 ML BAG IV SCH (02:00)
[2021-11-08 02:41] LABS: BUN Blood Urea Nitrogen 10 mg/dL (7-18); Bicarbonate 25 mmol/L (21-32); CKMB Creatine Kinase MB 9.7 ng/mL (1.0-3.6); Creatine Phosphokinase 234 U/L (39-308); Folic Acid, (Folate) > 20.0 ng/mL (3.1-17.5); Glomerular Filtration Rate 97 ml/min (=/>90); Glucose Level 96 mg/dL (74-106); HDL Cholesterol 45 mg/dL (40-60); LDL Cholesterol, Calculated 28 mg/dL (<130); Magnesium 1.9 mg/dL (1.8-2.4); Phosphorus 2.1 mg/dL (2.5-4.9); Potassium 3.4 mmol/L (3.5-5.1); Sodium Level 139 mmol/L (136-145)
[2021-11-08 02:42] LABS: Troponin High Sensitivity 552.9 pg/mL (<58.9)
[2021-11-08 02:49] LABS: Blood Morphology Comment NOTED (NOT SEEN); Macrocytosis 2+; Platelet Estimate ADEQ; White Blood Cell Scan OK (OK)
[2021-11-08] MEDS ORDERED: PNEUMOCOCCAL VACCINE 0.5 ML IMVAC ONE (08:00)
[2021-11-08] MEDS ORDERED: ENOXAPARIN 40 MG/0.4 ML SQ SCH (09:00)
[2021-11-08] MEDS ORDERED: NA CHLORIDE 0.9% 500 ML IV ONE ×2 (09:05→20:20)
[2021-11-08] MEDS: CEFTRIAXONE 1,000 MG in NA CHLORIDE 0.9% 50 ML IVPB SCH (09:51)
[2021-11-08] MEDS: ASPIRIN EC 81 MG TAB PO SCH (09:51)
[2021-11-08] MEDS: FOLIC ACID 1 MG TABLET PO SCH (09:51)
[2021-11-08] MEDS: THIAMINE HCL 100 MG TABLET PO SCH (09:59)
[2021-11-08] MEDS ORDERED: POTASSIUM 25 MEQ EFFERV TAB PO ONE (11:36)
--- NOTE | 2021-11-08 13:06 | EKG ---
Test Date: 2021-11-07 Test Time: 15:50:27 [employer] Sales Representative: MICHELLE MEASUREMENT RESULTS: Intervals: Rate: 80 AZ: 180 QRSD: 76 QT: 406 QTc: 468 Whately: P: 83 AZ: 180 QRS: -21 T: 51 INTERPRETIVE STATEMENTS: Normal sinus rhythm Low voltage QRS Cannot rule out Anterior infarct, age undetermined Abnormal ECG Compared to ECG 06/13/2019 13:14:24 Low QRS voltage now present Myocardial infarct finding now present Sinus tachycardia no longer present First degree AV block no longer present Electronically Signed On 11-08-21 13:04:27 CDT by Nicola Cr
--- NOTE | 2021-11-08 13:33 | ECHO ---
HEIGHT: 5 ft 8 in WEIGHT: 99 lb 1.6 oz DATE OF STUDY: 11/08/[address]: Adriane Jones 2-DIMENSIONAL: YES M.MODE: YES DOPPLER: YES COLOR FLOW: YES TDS: NO PORTABLE: YES DEFINITY: NO BUBBLE STUDY: NO DIAGNOSIS: ELEVATED TROPONIN AND BNP CARDIAC HISTORY: CATHERIZATION: NO SURGERY: NO PROSTHETIC VALVE: NO PACEMAKER: NO MEASUREMENTS (cm) DIASTOLIC (NORMALS) SYSTOLIC (NORMALS) IVSd 1.1 (0.6-1.2) LA Diam 2.1 (1.9-4.0) LVEF 72% LVIDd 2.4 (3.5-5.7) LVIDs 1.5 (2.0-3.5) %FS 39% LVPWd 1.2 (0.6-1.2) Ao Diam 2.9 (2.0-3.7) 2 DIMENSIONAL ASSESSMENT: RIGHT ATRIUM: NORMAL LEFT ATRIUM: NORMAL RIGHT VENTRICLE: NORMAL LEFT VENTRICLE: NORMAL TRICUSPID VALVE: MITRAL VALVE: PULMONIC VALVE: NORMAL AORTIC VALVE: NORMAL PERICARDIAL EFFUSION: NONE AORTIC ROOT: NORMAL LEFT VENTRICULAR WALL MOTION: NORMAL DOPPLER/COLOR FLOW: SEE BELOW COMMENTS: NORMAL LEFT VENTRICULAR EJECTION FRACTION 60-65%. NORMAL WALL MOTION. MILD MITRAL AND TRICUSPID REGURGITATION. TECHNOLOGIST: Marjan CORONA
--- NOTE | 2021-11-08 14:16 | P.PN ---
Subjective Date of Service: 11/08/21 Chief Complaint: UTI, Weakness, Elevated Troponin Patient currently has no new complaint. He denies any chest pain. He reports history of alcohol withdrawal. He states that he drinks about 3-4 beers a day and drinks every day. Physical Examination - Vital Signs Temperature: 98.6 F Blood Pressure: 102/56 Pulse: 69 Respirations: 16 Pulse Ox (%): 99 - Physical Exam General: Other (Frail-appearing) HEENT: Mucous membr. moist/pink Neck: JVD not distended Respiratory: Clear to auscultation bilaterally, Normal air movement Cardiovascular: No edema, Regular rate/rhythm, Normal S1 S2 Gastrointestinal: Normal bowel sounds, Soft and benign, Non-distended Musculoskeletal: No swelling Integumentary: No rashes, No cyanosis Neurological: Normal speech, Normal strength at 5/5 x4 extr - Studies Laboratory Data (last 24 hrs) 11/08/21 12:04: APTT 47.6 H 11/08/21 06:16: APTT 47.6 H 11/08/21 01:26: APTT 33.9 11/08/21 01:26: Sodium 139, Potassium 3.4 L, BUN 10, Creatinine 0.70, Glucose 96, Phosphorus 2.1 L, Magnesium 1.9, Triglycerides 67, Cholesterol 86, HDL Cholesterol 45, Cholesterol/HDL Ratio 1.91 11/08/21 01:26: WBC 6.3, Hgb 9.7 L, Hct 27.6 L, Plt Count 184 11/07/21 16:14: PT 14.6 H, INR 1.32 11/07/21 16:14: WBC 5.6, Hgb 11.1 L, Hct 32.1 L, Plt Count 210 11/07/21 16:14: Sodium 136, Potassium 3.7, BUN 11, Creatinine 0.93, Glucose 111 H, Magnesium 2.2, Total Bilirubin 0.9, AST 35, ALT 52, Alkaline Phosphatase 46 Assessment And Plan - Current Problems (Diagnosis) (1) NSTEMI (non-ST elevated myocardial infarction) Current Visit: Yes Status: Acute (2) Generalized weakness Current Visit: Yes Status: Acute (3) Rhabdomyolysis Current Visit: Yes Status: Acute Qualifiers: Rhabdomyolysis type: non-traumatic Qualified Code(s): M62.82 - Rhabdomyolysis (4) Alcohol abuse Current Visit: Yes Status: Chronic - Plan Patient troponin trended up. Seen by cardiology-Dr. Fleming who is planning cardiac catheterization tomorrow. Patient is currently asymptomatic. Continue aspirin, heparin drip. Patient with soft blood pressure, intermittently hypotensive. Low BP limiting beta-jeffry use. Echocardiogram requested Continue IV fluid IV thiamine for alcohol abuse. Watch for alcohol withdrawal. PT consulted.
[2021-11-09] MEDS: HEPARIN 5000 UNIT/ML 1 ML VIAL IV SCH (03:39)
[2021-11-09] MEDS ORDERED: HEPARIN 5000 UNIT/ML 1 ML VIAL ONE (03:45)
[2021-11-09 04:49] LABS: MPV 6.8 fL (7.6-11.3)
[2021-11-09 05:23] LABS: Potassium 2.8 mmol/L (3.5-5.1)
[2021-11-09] MEDS: KCL 20 MEQ/100 mL IVPB 20 MEQ/100 ML BAG IV SCH ×3 (06:00→10:00)
[2021-11-09] MEDS ORDERED: FENTANYL CITR 100 MCG/2 ML ONE (06:52)
[2021-11-09] MEDS ORDERED: LIDOCAINE 1% 20 ML MDV ONE (06:52)
[2021-11-09] MEDS ORDERED: MIDAZOLAM HCL 2 MG/2 ML INJ ONE (06:52)
[2021-11-09] MEDS ORDERED: HEPA 1000U/500MLS 1,000 UNIT/500 ML BAG IV ONE (06:52)
[2021-11-09] MEDS ORDERED: NA CHLORIDE 0.9% 0 ML ONE (06:52)
[2021-11-09] MEDS ORDERED: NA CHLORIDE 0.9% 0 ML IV ONE (06:53)
[2021-11-09] MEDS ORDERED: ATROPINE SULF 1 MG/10 ML SYR IV ONE (06:53)
[2021-11-09] MEDS: CEFTRIAXONE 1,000 MG in NA CHLORIDE 0.9% 50 ML IVPB SCH (09:00)
[2021-11-09] MEDS: NA CHLORIDE 0.9% 1,000 ML IV SCH ×2 (09:13→21:57)
[2021-11-09] MEDS: THIAMINE HCL 100 MG TABLET PO SCH (11:12)
[2021-11-09] MEDS: FOLIC ACID 1 MG TABLET PO SCH (11:12)
[2021-11-09] MEDS: ASPIRIN EC 81 MG TAB PO SCH (11:12)
[2021-11-09] MEDS: POTASSIUM CL SA 10 MEQ TAB PO SCH ×2 (11:13→16:36)
--- NOTE | 2021-11-09 16:57 | P.PN ---
Subjective Date of Service: 11/09/21 Chief Complaint: UTI, Weakness, Elevated Troponin Patient has no new complaint. He denies any chest pain. No symptoms of alcohol withdrawal. Physical Examination - Vital Signs Temperature: 97.0 F Blood Pressure: 94/58 Pulse: 81 Respirations: 18 Pulse Ox (%): 100 - Physical Exam General: Alert, In no apparent distress, Cachectic HEENT: Mucous membr. moist/pink Neck: JVD not distended Respiratory: Clear to auscultation bilaterally, Normal air movement Cardiovascular: No edema, Regular rate/rhythm, Normal S1 S2 Gastrointestinal: Soft and benign, Non-distended, No tenderness Musculoskeletal: No swelling Integumentary: No rashes Neurological: Normal strength at 5/5 x4 extr Assessment And Plan - Current Problems (Diagnosis) (1) NSTEMI (non-ST elevated myocardial infarction) Current Visit: Yes Status: Acute (2) Generalized weakness Current Visit: Yes Status: Acute (3) Rhabdomyolysis Current Visit: Yes Status: Acute Qualifiers: Rhabdomyolysis type: non-traumatic Qualified Code(s): M62.82 - Rhabdomyolysis (4) Alcohol abuse Current Visit: Yes Status: Chronic - Plan Status post cardiac catheterization today. Dr. Fleming reports no coronary artery occlusion noted. Patient is currently asymptomatic from COVID-19 Continue aspirin.discontinue heparin drip. Patient with soft blood pressure, intermittently hypotensive. Echocardiogram echocardiogram shows EF of 72% Continue IV fluid IV thiamine for alcohol abuse. Watch for alcohol withdrawal. Patient ambulated with a rolling walker today. Patient with generalized weakness, he lives alone. Continue physical therapy and continue hydration. Family deciding on home health for PT and care home.
[2021-11-09 18:53] LABS: Potassium 3.2 mmol/L (3.5-5.1)
[2021-11-09] MEDS ORDERED: POTASSIUM 25 MEQ EFFERV TAB PO ONE (20:30)
[2021-11-09] MEDS: ATORVASTATIN 40 MG TAB PO SCH (21:47)
[2021-11-09] MEDS: ENSURE ENLIVE 237 ML CAN PO SCH (21:58)
[2021-11-10 04:43] LABS: MPV 6.5 fL (7.6-11.3)
[2021-11-10 05:02] LABS: Potassium 3.6 mmol/L (3.5-5.1)
[2021-11-10] MEDS: NA CHLORIDE 0.9% 1,000 ML IV SCH ×2 (08:17→18:00)
[2021-11-10] MEDS: CEFTRIAXONE 1,000 MG in NA CHLORIDE 0.9% 50 ML IVPB SCH (09:00)
[2021-11-10] MEDS: ENSURE ENLIVE 237 ML CAN PO SCH ×3 (09:00→21:09)
[2021-11-10] MEDS ORDERED: POTASSIUM 25 MEQ EFFERV TAB PO ONE (09:00)
[2021-11-10] MEDS: ASPIRIN EC 81 MG TAB PO SCH (09:13)
[2021-11-10] MEDS: FOLIC ACID 1 MG TABLET PO SCH (09:14)
--- NOTE | 2021-11-10 11:08 | CON ---
Date of Consultation: 11/08/[address] Troy on 11/07/2021. I saw the patient on 11/08/2021. Reason For Consultation: Unstable angina. History Of Present Illness: Mr. Tucker is a 76-year-old black male with no past medical history. He d oes not take any medicine, does not have any allergies. Came in with an episode of weakness and fall . Denied any syncope. Denies any nausea, vomiting, diaphoresis, PND, orthopnea, pedal edema, or pal pitation, but was found to have an elevated troponin of 100,000. I was asked to see him and evaluate him. He did have a potassium of 2.8. He was on heparin. He was asymptomatic by the time I saw him . Past Medical History: Negative. Allergies: NONE. Review of Systems: Negative. Social History: Negative. Family History: Negative. Medications: None. Physical Examination: Vital Signs: Stable. He was afebrile. HEENT: Negative. Neck: Supple with no bruit. Chest: Clear to auscultation and percussion. Cardiac: Revealed a regular rhythm and rate. No murmurs, gallops, or rubs. Abdomen: Benign. Extremities: Revealed no clubbing, cyanosis, or edema. Diagnostic Data: His troponin was elevated. His chest x-ray was negative. His EKG showed possible old anterior ME and low voltage. Echocardiogram showed an ejection fraction of 72%. Impression And Plan: The patient with fall and some weakness, elevated troponin consistent with non- ST elevation myocardial infarction. We will plan to do a left heart catheterization on him with radha ctive coronary arteriogram to define his coronary anatomy. The patient understands the risk and the benefits of the procedure and he agreed to proceed. GLEN/SEBASTIAN Voice ID: [id number] Report ID: [id number]
[2021-11-10] MEDS: CEFDINIR 300 MG CAP PO SCH ×2 (11:13→21:08)
[2021-11-10] MEDS: THIAMINE HCL 100 MG TABLET PO SCH (11:14)
--- NOTE | 2021-11-10 12:08 | OP ---
Surgeon: Jad Fleming MD Engine Hostler: Ms. Gloria Roper. The patient will remain in the hospital for 2 hours of bedrest after which he can go home and he will follow up with us in the next 2 weeks. Case was discussed with Dr. Troy. Procedures: Left heart catheterization, selective coronary arteriogram, and common femoral artery an giogram. Indication: Non-ST elevation myocardial infarction. Mr. Tucker came in with sudden episode of weaknes s and falling and was found to have an elevated troponin in the 1000s. Brought to the concrete laborer on as an inpatient. Underwent a selective coronary arteriogram, left heart catheterization, co mmon femoral artery angiogram. Procedure In Detail: In the concrete laborer, he was prepped and draped in the routine sterile fashion. He was given Versed and fentanyl for sedation. A 6-Luxembourger sheath was introduced in the right common fem oral artery successfully using 10 cc of Xylocaine and the Seldinger technique. Angiogram of the comm on femoral artery was normal. Angio-Seal was used to close the case. Madi catheter left and righ t were used to do the diagnostic catheterization. He was found to have a normal left main and normal circumflex. He was left dominant. The RCA was small and normal. Was found to have about 30% LAD s tenosis. The patient tolerated the procedure well. There were no complications. Blood Loss: 5 cc. Anesthesia: Total conscious sedation was 30 minutes. Final Diagnosis: Mild coronary artery disease. Plan: Plan is for medical therapy. GLEN/SEBASTIAN Voice ID: [id number] Report ID: [id number]
--- NOTE | 2021-11-10 13:02 | P.PN ---
Subjective Date of Service: 11/10/21 Chief Complaint: UTI, Weakness, Elevated Troponin Patient has no new complaint. I saw him eating breakfast. Oral intake is improving. No symptoms of alcohol withdrawal. Physical Examination - Vital Signs Temperature: 97.8 F Blood Pressure: 99/59 Pulse: 79 Respirations: 18 Pulse Ox (%): 99 Assessment And Plan - Current Problems (Diagnosis) (1) NSTEMI (non-ST elevated myocardial infarction) Current Visit: Yes Status: Acute (2) Generalized weakness Current Visit: Yes Status: Acute (3) Rhabdomyolysis Current Visit: Yes Status: Acute Qualifiers: Rhabdomyolysis type: non-traumatic Qualified Code(s): M62.82 - Rhab domyolysis (4) Alcohol abuse Current Visit: Yes Status: Chronic - Plan Physical examination General: Alert, In no apparent distress, Cachectic HEENT: Mucous membr. moist/pink Neck: JVD not distended Respiratory: Clear to auscultation bilaterally, Normal air movement Cardiovascular: No edema, Regular rate/rhythm, Normal S1 S2 Gastrointestinal: Soft and benign, Non-distended, No tenderness Musculoskeletal: No swelling Integumentary: No rashes Neurological: Normal strength at 5/5 x4 extr Status post cardiac catheterization. Dr. Fleming reports no coronary artery occlusion noted. Patient is currently asymptomatic from COVID-19 Continue aspirin. Status post heparin drip. Patient with soft blood pressure, blood pressure generally improved Echocardiogram echocardiogram shows EF of 72% Continue IV fluid Thiamine for alcohol abuse. Watch for alcohol withdrawal. We will start gabapentin on discharge to reduce alcohol craving Patient ambulated with a rolling walker today. Patient with generalized weakness, he lives alone. Continue physical therapy. Patient and family looking at home with home health. He states he is going to live with his son for the meantime.
[2021-11-10] MEDS: ATORVASTATIN 40 MG TAB PO SCH (21:08)
[2021-11-11] MEDS: NA CHLORIDE 0.9% 1,000 ML IV SCH ×3 (04:25→14:55)
[2021-11-11 04:39] LABS: Absolute Lymphocytes (CBC) 1.7 K/uL (0.7-4.9); Hematocrit 22.3 % (39.6-49.0); Lymphocytes % 30.2 % (15.3-44.8); MCV 112.9 fL (80-100); MPV 6.4 fL (7.6-11.3); RBC Red Blood Cell Count 1.97 M/uL (4.33-5.43)
[2021-11-11 05:03] LABS: Potassium 3.2 mmol/L (3.5-5.1)
[2021-11-11] MEDS ORDERED: POTASSIUM CL SA 10 MEQ TAB PO ONE (09:00)
[2021-11-11] MEDS: THIAMINE HCL 100 MG TABLET PO SCH (10:46)
[2021-11-11] MEDS: CEFDINIR 300 MG CAP PO SCH ×2 (10:46→21:25)
[2021-11-11] MEDS: ASPIRIN EC 81 MG TAB PO SCH (10:46)
[2021-11-11] MEDS: FOLIC ACID 1 MG TABLET PO SCH (10:46)
[2021-11-11] MEDS: ENSURE ENLIVE 237 ML CAN PO SCH ×3 (10:47→21:25)
--- NOTE | 2021-11-11 15:57 | P.PN ---
Subjective Date of Service: 11/11/21 Chief Complaint: UTI, Weakness, Elevated Troponin Patient has no new complaint. No symptoms of alcohol withdrawal. He is eating better though overall oral intake has been poor. He reports poor sleep last night Physical Examination - Vital Signs Temperature: 98.0 F Blood Pressure: 114/66 Pulse: 78 Respirations: 18 Pulse Ox (%): 97 Assessment And Plan - Current Problems (Diagnosis) (1) NSTEMI (non-ST elevated myocardial infarction) Current Visit: Yes Status: Acute (2) Generalized weakness Current Visit: Yes Status: Acute (3) Rhabdomyolysis Current Visit: Yes Status: Acute Qualifiers: Rhabdomyolysis type: non-traumatic Qualified Code(s): M62.82 - Rhabdomyolysis (4) Alcohol abuse Current Visit: Yes Status: Chronic (5) Severe protein-calorie malnutrition Current Visit: Yes Status: Acute - Plan Physical examination General: Alert, In no apparent distress, Cachectic HEENT: Mucous membr. moist/pink Neck: JVD not distended Respiratory: Clear to auscultation bilaterally, Normal air movement Cardiovascular: No edema, Regular rate/rhythm, Normal S1 S2 Gastrointestinal: Soft and benign, Non-distended, No tenderness Musculoskeletal: No swelling Integumentary: No rashes Neurological: Normal strength at 5/5 x4 extr Status post cardiac catheterization. Dr. Fleming reports no coronary artery occlusion noted. Patient is currently asymptomatic from COVID-19 Continue aspirin. Status post heparin drip. Patient with soft blood pressure, blood pressure generally improved Echocardiogram echocardiogram shows EF of 72% Continue IV fluid Thiamine for alcohol abuse. No signs of alcohol withdrawal Gabapentin on discharge to reduce alcohol craving Patient ambulated with a rolling walker. Patient with generalized weakness, he lives alone. Continue physical therapy. Patient and family looking at home with home health. He states he is going to live with his son for the meantime.
[2021-11-11] MEDS: ATORVASTATIN 40 MG TAB PO SCH (21:25)
[2021-11-11] MEDS ORDERED: POTASSIUM 25 MEQ EFFERV TAB PO ONE (21:30)
[2021-11-12] MEDS: NA CHLORIDE 0.9% 1,000 ML IV SCH ×4 (00:40→21:09)
[2021-11-12 03:42] LABS: Phosphorus 1.9 mg/dL (2.5-4.9); Potassium 3.8 mmol/L (3.5-5.1)
[2021-11-12 03:44] LABS: Magnesium 1.2 mg/dL (1.8-2.4)
[2021-11-12] MEDS: POTASS/SODIUM PHOSPHATE 1 PKT POWD.PACK PO SCH ×3 (04:54→08:00)
[2021-11-12] MEDS ORDERED: Magnesium Sulfate 2gm IVPB 2 G/50 ML BAG IV ONE (05:00)
[2021-11-12] MEDS ORDERED: POTASSIUM 25 MEQ EFFERV TAB PO ONE (09:00)
[2021-11-12] MEDS: ASPIRIN EC 81 MG TAB PO SCH (09:13)
[2021-11-12] MEDS: THIAMINE HCL 100 MG TABLET PO SCH (09:13)
[2021-11-12] MEDS: ENSURE ENLIVE 237 ML CAN PO SCH ×3 (09:13→21:00)
[2021-11-12] MEDS: CEFDINIR 300 MG CAP PO SCH ×2 (09:13→21:09)
[2021-11-12] MEDS: FOLIC ACID 1 MG TABLET PO SCH (09:13)
--- NOTE | 2021-11-12 13:52 | P.PN ---
Subjective Date of Service: 11/12/21 Chief Complaint: UTI, Weakness, Elevated Troponin Patient has no complaint. No symptoms of alcohol withdrawal. Patient hemoglobin trended down. Physical Examination - Vital Signs Temperature: 97.6 F Blood Pressure: 94/54 Pulse: 76 Respirations: 18 Pulse Ox (%): 98 Assessment And Plan - Current Problems (Diagnosis) (1) NSTEMI (non-ST elevated myocardial infarction) Current Visit: Yes Status: Acute (2) Generalized weakness Current Visit: Yes Status: Acute (3) Rhabdomyolysis Current Visit: Yes Status: Acute Qualifiers: Rhabdomyolysis type: non-traumatic Qualified Code(s): M62.82 - Rhabdomyolysis (4) Alcohol abuse Current Visit: Yes Status: Chronic (5) Severe protein-calorie malnutrition Current Visit: Yes Status: Acute - Plan Physical examination General: Alert, In no apparent distress, Cachectic Respiratory: Clear to auscultation bilaterally, Normal air movement Cardiovascular: No edema, Regular rate/rhythm, Normal S1 S2 Gastrointestinal: Soft and benign, Non-distended, No tenderness Musculoskeletal: No swelling Integumentary: No rashes Neurological: Normal strength at 5/5 x4 extr Status post cardiac catheterization. Dr. Fleming reports no coronary artery occlusion noted. Patient has been asymptomatic from COVID-19 Continue aspirin. Status post heparin drip. Patient with soft blood pressure but blood pressure generally improved Echocardiogram echocardiogram shows EF of 72% Continue IV fluid Thiamine for alcohol abuse. No signs of alcohol withdrawal Gabapentin on discharge to reduce alcohol craving Patient ambulated with a rolling walker. Patient with generalized weakness, he lives alone. Continue physical therapy. Family now requesting for rehab. Consult placed for evaluation for inpatient rehab.
[2021-11-12] MEDS: ATORVASTATIN 40 MG TAB PO SCH (21:08)
[2021-11-12 21:46] LABS: Hematocrit 24.1 % (39.6-49.0); MCV 112.8 fL (80-100); MPV 6.7 fL (7.6-11.3); RBC Red Blood Cell Count 2.14 M/uL (4.33-5.43)
[2021-11-13 04:02] LABS: Absolute Lymphocytes (CBC) 1.6 K/uL (0.7-4.9); Hematocrit 22.3 % (39.6-49.0); Lymphocytes % 27.5 % (15.3-44.8); MPV 6.7 fL (7.6-11.3); RBC Red Blood Cell Count 1.93 M/uL (4.33-5.43)
[2021-11-13 04:04] LABS: Protime INR 1.64
[2021-11-13 04:07] LABS: MCV 115.4 fL (80-100)
[2021-11-13 04:17] LABS: Albumin 1.9 g/dL (3.4-5.0); Bilirubin Total 0.3 mg/dL (0.2-1.0); Magnesium 1.7 mg/dL (1.8-2.4); Phosphorus 2.9 mg/dL (2.5-4.9); Potassium 3.8 mmol/L (3.5-5.1)
[2021-11-13] MEDS ORDERED: MAGNESIUM SULFATE 1 gm IVPB 1 GM/100 ML BAG IV ONE (05:19)
[2021-11-13] MEDS: NA CHLORIDE 0.9% 1,000 ML IV SCH (05:41)
--- NOTE | 2021-11-13 06:46 | P.PN ---
Date of Service: 11/13/21 Subjective: improving, appetite improving, ambulating better concerned about going home where he lives alone - mainly due to concern he will become weak again ROS: 10 point ROS as noted above, otherwise negative Physical exam GEN: Alert, oriented, NAD HEENT: Normal conjunctiva, sclera anicteric CV: Regular rate and rhythm, no edema Pulm: Nonlabored respirations on room air ABD: Soft, nontender, nondistended Neuro: Normal speech, normal affect Problem List NSTEMI Generalized weakness rhabdomyolysis Alcohol abuse Severe protein calorie malnutrition macrocytic anemia, acute on chronic s/p cardiac cath - no coronary artery occlusion/significant stenosis, no stent needed echo: EF:72% asymptomatic from COVID-19 continue aspirin, s/p heparin drip soft BP, improving hgb trended down from 11 - 7.8 over last few days; denies h/o anemia. prior hgb was 11, years ago macrocytic, b12/folate ok check retic count no evidence of bleed. pt reports normal / small BM yesterday, not black, not red suspect some component of hemodilution no signs of alcohol withdrawal, continue thiamine PT consulted, pt doing well, recommended home with home health / PT Code: full Dispo: home, 1-2 days monitor hgb, blood pressure Time Spent Managing Pts Care (In Minutes): 35
[2021-11-13] MEDS: THIAMINE HCL 100 MG TABLET PO SCH (08:56)
[2021-11-13] MEDS: CEFDINIR 300 MG CAP PO SCH ×2 (08:56→20:03)
[2021-11-13] MEDS: FOLIC ACID 1 MG TABLET PO SCH (08:57)
[2021-11-13] MEDS: ENSURE ENLIVE 237 ML CAN PO SCH ×3 (08:57→20:03)
[2021-11-13] MEDS: ASPIRIN EC 81 MG TAB PO SCH (08:57)
[2021-11-13] MEDS ORDERED: POTASSIUM CL SA 10 MEQ TAB PO ONE (09:00)
[2021-11-13] MEDS: ATORVASTATIN 40 MG TAB PO SCH (20:03)
[2021-11-14 05:14] LABS: Magnesium 1.9 mg/dL (1.8-2.4); Potassium 3.9 mmol/L (3.5-5.1)
[2021-11-14 05:15] LABS: Absolute Lymphocytes (CBC) 1.7 K/uL (0.7-4.9); Hematocrit 22.1 % (39.6-49.0); Lymphocytes % 27.9 % (15.3-44.8); MCV 114.3 fL (80-100); MPV 6.7 fL (7.6-11.3); RBC Red Blood Cell Count 1.93 M/uL (4.33-5.43)
[2021-11-14 05:37] LABS: Blood Morphology Comment NOTED (NOT SEEN); Macrocytosis 1+; Platelet Estimate ADEQ; White Blood Cell Scan OK (OK)
[2021-11-14] MEDS: ASPIRIN EC 81 MG TAB PO SCH (08:36)
[2021-11-14] MEDS: THIAMINE HCL 100 MG TABLET PO SCH (08:36)
[2021-11-14] MEDS: FOLIC ACID 1 MG TABLET PO SCH (08:36)
[2021-11-14] MEDS: ENSURE ENLIVE 237 ML CAN PO SCH ×3 (08:36→20:27)
[2021-11-14 18:41] VITALS: O2SAT 98
--- NOTE | 2021-11-14 18:42 | P.PN ---
Date of Service: 11/14/21 Subjective: improving slightly tachycardic this morning, BP borderline hgb low ROS: 10 point ROS as noted above, otherwise negative Physical exam GEN: Alert, oriented, NAD, cachectic HEENT: Normal conjunctiva, sclera anicteric CV: Regular rate and rhythm, no edema Pulm: Nonlabored respirations on room air ABD: Soft, nontender, nondistended Neuro: Normal speech, normal affect Problem List NSTEMI Generalized weakness rhabdomyolysis Alcohol abuse Severe protein calorie malnutrition macrocytic anemia, acute on chronic s/p cardiac cath - no coronary artery occlusion/significant stenosis, no stent needed echo: EF:72% asymptomatic from COVID-19 continue aspirin, s/p heparin drip soft BP, improving slight tachycardia this morning hgb trended down from 11 - 7.8 over last few days; denies h/o anemia. prior hgb was 11, years ago; stable macrocytic, b12/folate ok no evidence of bleed. pt reports normal / small BM 11/12, not black, not red suspect some component of hemodilution, had elevated PTT while on heparin drip, no evidence of hematoma at cath site no signs of alcohol withdrawal, continue thiamine PT consulted, pt doing well, recommended home with home health / PT Code: full Dispo: home, tomorrow monitor hgb, blood pressure Time Spent Managing Pts Care (In Minutes): 25
[2021-11-14] MEDS: ATORVASTATIN 40 MG TAB PO SCH (20:39)
--- OUTSIDE RECORDS SUMMARY | 2021-11-15 02:53 | XMS REPORT | Continuity of Care Document ---
:1945 Author Organization [facility] Address [address] [place] [address] [place] [id number] Care Team Providers Name Role Phone Unavailable Unavailable Unavailable Problems This patient has no known problems. Allergies, Adverse Reactions, Alerts This patient has no known allergies or adverse reactions. Medications This patient has no known medications. Procedures This patient has no known procedures. Encounters Start End Encounter Admission Attending Care Care Encounter Source Date/Time Date/Time Type Type Clinicians Facility Department ID 2021-05-23 Outpatient [facility] [id number] Common 13:42:08 [id number] [facility] 2021-05-23 Outpatient [facility] [id number] Common 13:38:03 [id number] [facility] Results This patient has no known results.
[2021-11-15 03:51] LABS: Hematocrit 21.8 % (39.6-49.0); MCV 115.4 fL (80-100); MPV 6.3 fL (7.6-11.3); RBC Red Blood Cell Count 1.89 M/uL (4.33-5.43)
--- NOTE | 2021-11-15 07:53 | P.DS ---
Admission Date: 11/08/21 Discharge Date: 11/15/21 Disposition: DC HOME/HOME HEALTH CARE Discharge Condition: GOOD Reason for Admission: UTI, Weakness, Elevated Troponin Brief History of Present Illness: 76-year-old male who presented to the ED via EMS with complaints of weakness. Per EMS, patient was at home, fell, and was too weak to get up. Patient reports drinking a six pack of beers throughout day. Patient appears malnourished upon presentation. He denies any active medical problems or taking any medications on a daily basis. Vital signs stable. Labs significant for BNP 7795, troponin HS 153.4, CPK 444, urine nitrite positive. Serum alcohol WNL, tox screen negative. He was given a banana bag and started on Rocephin in the ED. He denies any chest pain during my assessment. ED provider wishes to admit patient for fu rther evaluation and treatment. Hospital Course: Problem List NSTEMI Generalized weakness rhabdomyolysis Alcohol abuse Severe protein calorie malnutrition macrocytic anemia, acute on chronic Patient was evaluated by Cardiology due to elevated troponin. He underwent cardiac catheterization which noted mild atherosclerosis and did not require surgical intervention. He was maintained on aspirin. His blood pressure remained low-normal and was not started on beta jeffry. Patient to follow up with Cardiology in 2-3 weeks. Recheck blood pressure / heart rate to re-eval for beta jeffry He was noted to have anemia with macrocytosis. serum b12 and folate were normal. No evidence of bleed and vitals otherwise remained stable. Hgb remained stable for several days ~8.0 and did not require blood transfusion. He was evaluated by PT and ambulated with a walker. He did well and did not qualify for inpatient rehab. He is discharged home with home health / PT. Wheeled walker has been ordered. Discharged with aspirin, folic acid, and thiamine. Advised to continue abstaining from alcohol. Follow up with PCP in 3-5 days and recommend recheck hemoglobin. Physical exam GEN: Alert, oriented, NAD, thin, frail HEENT: Normal conjunctiva, sclera anicteric CV: Regular rate and rhythm, no edema Pulm: Nonlabored respirations on room air ABD: Soft, nontender, nondistended Neuro: Normal speech, normal affect Vital Signs/Physical Exam: Temp Pulse Resp BP Pulse Ox 97.8 F 94 H 18 117/64 98 11/15/21 04:00 11/15/21 04:00 11/15/21 04:00 11/15/21 04:00 11/15/21 04:00 Laboratory Data at Discharge: WBC 5.8 K/uL (4.3-10.9) 11/15/21 03:22 Hgb 7.9 g/dL (13.6-17.9) L 11/15/21 03:22 Hct 21.8 % (39.6-49.0) L 11/15/21 03:22 Plt Count 274 K/uL (152-406) 11/15/21 03:22 PT 18.2 SECONDS (9.5-12.5) H 11/13/21 03:25 INR 1.64 11/13/21 03:25 APTT > 400.0 SECONDS (24.3-36.9) H* 11/09/21 04:00 Sodium 135 mmol/L (136-145) L 11/14/21 03:16 Potassium 3.9 mmol/L (3.5-5.1) 11/14/21 03:16 BUN 7 mg/dL (7-18) 11/14/21 03:16 Creatinine 0.55 mg/dL (0.55-1.3) 11/14/21 03:16 Glucose 85 mg/dL (74-106) 11/14/21 03:16 Phosphorus 2.9 mg/dL (2.5-4.9) D 11/13/21 03:25 Magnesium 1.9 mg/dL (1.8-2.4) 11/14/21 03:16 Total Bilirubin 0.3 mg/dL (0.2-1.0) 11/13/21 03:25 AST 22 U/L (15-37) 11/13/21 03:25 ALT 43 U/L (12-78) 11/13/21 03:25 Alkaline Phosphatase 75 U/L (45-117) 11/13/21 03:25 Triglycerides 67 mg/dL (<150) 11/08/21 01:26 Cholesterol 86 mg/dL (<200) 11/08/21 01:26 HDL Cholesterol 45 mg/dL (40-60) 11/08/21 01:26 Cholesterol/HDL Ratio 1.91 11/08/21 01:26 Home Medications: Aspirin [Aspirin EC 81 MG] 81 mg PO DAILY 30 Days #30 tablet. 11/15/21 Folic Acid 1 mg PO DAILY 30 Days #30 tablet 11/15/21 Thiamine HCl [Vitamin B-1*] 100 mg PO DAILY 30 Days #30 tablet 11/15/21 New Medications: Aspirin [Aspirin EC 81 MG] 81 mg PO DAILY 30 Days #30 tablet. Folic Acid 1 mg PO DAILY 30 Days #30 tablet Thiamine HCl [Vitamin B-1*] 100 mg PO DAILY 30 Days #30 tablet Physician Discharge Instructions: Patient was evaluated by Cardiology due to elevated troponin. He underwent cardiac catheterization which noted mild atherosclerosis and did not require surgical intervention. He was maintained on aspirin. His blood pressure remained low-normal and was not started on beta jeffry. Patient to follow up with Cardiology in 2-3 weeks. Recheck blood pressure / heart rate to re-eval for beta jeffry He was noted to have anemia with macrocytosis. serum b12 and folate were normal. No evidence of bleed and vitals otherwise remained stable. Hgb remained stable for several days ~8.0 and did not require blood transfusion. He was evaluated by PT and ambulated with a walker. He did well and did not qualify for inpatient rehab. He is discharged home with home health / PT. Wheeled walker has been ordered. Discharged with aspirin, folic acid, and thiamine. Advised to continue abstaining from alcohol. Follow up with PCP in 3-5 days and recommend recheck hemoglobin. Diet: AHA Activity: Fall precautions Followup: NONE,NONE [Primary Care Provider] - Time spent managing pt's care (in minutes): 45
[2021-11-15 08:11] VITALS: BP 99/56; TEMP 98.6
[2021-11-15] MEDS: ASPIRIN EC 81 MG TAB PO SCH (10:46)
[2021-11-15] MEDS: THIAMINE HCL 100 MG TABLET PO SCH ×2 (10:46→10:47)
[2021-11-15] MEDS: ENSURE ENLIVE 237 ML CAN PO SCH ×2 (10:46→14:00)
[2021-11-15] MEDS: FOLIC ACID 1 MG TABLET PO SCH (10:46)
== END 2021-11-15 16:57 | disposition home health service (06) | DRG 280 ==
LOC: ER 15:25 → ERHOLD 20:32 → 2ND 22:02 → OBSVTOIN 11-08 13:31
PROVIDERS: ADMIT Internal Medicine; ATTEND Internal Medicine
PROC: B2011ZZ Plain Radiography of Multiple Coronary Arteries using Low Osmolar Contrast (ICD-10-PCS; principal; 2021-11-09)
DX: I21.4 Non-ST elevation (NSTEMI) myocardial infarction (principal); E43 Unspecified severe protein-calorie malnutrition; N30.01 Acute cystitis with hematuria; M62.82 Rhabdomyolysis; Z68.1 Body mass index [BMI] 19.9 or less, adult; R64 Cachexia; E86.0 Dehydration; F10.10 Alcohol abuse, uncomplicated; I25.10 Atherosclerotic heart disease of native coronary artery without angina pectoris; D53.9 Nutritional anemia, unspecified; Z20.822 Contact with and (suspected) exposure to COVID-19
CPT/HCPCS: 36415; 51702; 70450; 71045; 72125; 80048; 80053; 80061; 80076; 80307; 80320; 81003; 81015; 82550; 82553; 82607; 82746; 83605; 83735; 83880; 84100; 84132; 84145; 84443; 84484; 85025; 85027; 85044; 85049; 85610; 85730; 87040; 90471; 90732; 93005; 93306; 93454; 96374; 96375; 97116; 97161; 97530; 99285; C1760; C1893; G0269; G0378; J0583; J1644; J2250; J3010; J3411; J3475; J3480; J7030; J7040; Q9966; U0003